=== PATIENT | male | born 1980 | race Caucasian/White ===

== ENCOUNTER 2019-06-10 12:07 | Emergency (ER) | payer OTHER ==
[2019-06-10 12:53] VITALS: BP 126/76
--- NOTE | 2019-06-10 13:12 | XRAY Report ---
Reason: injury Procedure Date: 06/10/2019 Accession Number: [id number] / [id number] Procedure: XR - Knee 4 View RT CPT Code: FULL RESULT: EXAM: RIGHT KNEE RADIOGRAPHY EXAM DATE: 06/10/2019 12:30 PM. CLINICAL HISTORY: Trauma, pain. COMPARISON: None. TECHNIQUE: 4 views, including oblique views. FINDINGS: Bones: Normal. No fractures or bone lesions. Joints: Joint spaces well preserved. Small joint effusion. Soft Tissues: Prepatellar and infrapatellar soft tissue swelling. IMPRESSION: Soft tissue swelling with small effusion. [facility]
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
[2019-06-10] MEDS ORDERED: IBUPROFEN 800 MG TABLET PO STA (15:54)
[2019-06-10] MEDS ORDERED: HYDROcod/ACETAM 5/325 MG TABLET PO STA (15:54)
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
== END 2019-06-10 17:00 | disposition home or self-care (01) ==
LOC: ED 12:07
DX: S16.1XXA Strain of muscle, fascia and tendon at neck level, initial encounter (principal); S80.01XA Contusion of right knee, initial encounter; M25.511 Pain in right shoulder; T14.8XXA Other injury of unspecified body region, initial encounter; V47.1XXA Car passenger injured in collision with fixed or stationary object in nontraffic accident, initial encounter; F17.200 Nicotine dependence, unspecified, uncomplicated
CPT/HCPCS: 72040; 73564; 99284; A9270

== ENCOUNTER 2020-07-31 08:00 | Outpatient (CLI) | payer OTHER | END 2020-07-31 23:59 | disposition home or self-care (01) | LOC: LAB.S 08:00 | PROVIDERS: ATTEND Nurse Practitioner Obstetrics & Gynecology | DX: Z01.83 Encounter for blood typing (principal) | CPT/HCPCS: 36415; 86900; 86901 ==

== ENCOUNTER 2020-08-02 18:13 | Outpatient (CLI) | payer OTHER | END 2020-08-02 18:14 | disposition home or self-care (01) | LOC: LAB.S 18:13 | PROVIDERS: ATTEND Nurse Practitioner Obstetrics & Gynecology | DX: Z01.83 Encounter for blood typing (principal) | CPT/HCPCS: 86900; 86901 ==

== ENCOUNTER 2020-08-22 18:18 | Outpatient (CLI) | payer OTHER | END 2020-08-22 18:19 | disposition home or self-care (01) | LOC: LAB.S 18:18 | PROVIDERS: ATTEND Student in an Organized Health Care Education/Training Program | DX: Z13.89 Encounter for screening for other disorder (principal) | CPT/HCPCS: 36415; 81599 ==